=== PATIENT | male | born 1965 | race Two or more races ===

== ENCOUNTER 2021-11-14 17:11 | Emergency (ER) | payer BC ==
[~2021-11-14] VITALS: Ht 170.2 cm; Wt 72.6 kg
[2021-11-14 17:25] VITALS: BP 147/64
[2021-11-14] MEDS ORDERED: TDAP [DIPH/PERTUSSIS/TET] 0.5 ML VIAL IM ONE ×2 (17:46→18:00)
--- NOTE | 2021-11-14 17:53 | NUR ---
Patient discharged to home in stable condition. Written and verbal after care instructions given. Patient verbalizes understanding of instruction.
== END 2021-11-14 17:54 | disposition home or self-care (01) ==
LOC: ER 17:18
DX: S70.311A Abrasion, right thigh, initial encounter (principal); W54.0XXA Bitten by dog, initial encounter; Y93.89 Activity, other specified; Y92.89 Other specified places as the place of occurrence of the external cause; Y99.8 Other external cause status
CPT/HCPCS: 90715